=== PATIENT | female | born 1960 | race African-American/Black ===

== ENCOUNTER 2019-03-10 08:29 | Emergency (ER) | payer OTHER ==
[~2019-03-10] VITALS: Ht 165.1 cm; Wt 54.4 kg
[2019-03-10 09:11] LABS: HEMATOCRIT 39.8 % (37.0-47.0); HEMOGLOBIN 13.9 gm/dL (12.0-15.0); MCH 34.5 pg (26.0-34.0); MCV 98.8 fL (80.0-100.0); PLATELET COUNT 414 thou/uL (150-400); RBC 4.03 mil/uL (4.20-5.00); RDW 13.3 % (10.5-14.5); WBC 10.8 thou/uL (4.0-11.0)
[2019-03-10 09:22] LABS: ANION GAP 8 mmol/L (7-16); BUN 11 mg/dL (7-18); CALCIUM 10.1 mg/dL (8.5-10.1); CHLORIDE 94 mmol/L (98-107); CO2 33 mmol/L (21-32); CREATININE 0.8 mg/dL (0.6-1.0); GLUCOSE 107 mg/dL (74-106); SODIUM 135 mmol/L (136-145)
[2019-03-10 09:30] LABS: TROPONIN-I <0.06 ng/mL (<0.06)
[2019-03-10] MEDS ORDERED: ZOFRAN ODT4 MG PO (09:44)
[2019-03-10 09:56] VITALS: BP 122/68
[2019-03-10 11:10] LABS: ABSOLUTE NEUTROPHILS 6.4 thou/uL (1.4-8.2); ATYPICAL LYMPHS 1 %; METAMYELOCYTES 3 %; NUCLEATED RBCS 1 /100WBC; PLATELET ESTIMATE INCREASED
[2019-03-10 11:11] LABS: POLYCHROMASIA 1+; TARGET CELLS FEW
--- NOTE | 2019-03-11 22:37 | EKG ---
[place] [address] [facility] [place] [address] ELECTROCARDIOGRAM REPORT Name: CALVIN JAY Room #: DEP JIMMY Liu#: [id number] ������������������ Admission: 03/10/19 ������������������ Attend Phys: Discharge: 03/10/19 ������������������ Date of : 60 Report #: [id number] ����������������������������������������������������������������� [id number] THIS REPORT FOR: //name// [facility] ED Test Date: 2019-03-10 Test Time: 08:52:48 Pat Name: CALVIN JAY Department: Room: Gender: F Respiratory Care Technician: JEET : 1960 Requested By: Kannan Cervantes Order Number: [id number] MD: Anibal Rodriguez Measurements Intervals [place] Rate: 90 P: 50 CT: 151 QRS: 37 QRSD: 86 T: 51 QT: 375 QTc: 459 Interpretive Statements Sinus rhythm Left atrial enlargement Probable left ventricular hypertrophy Baseline wander in lead(s) V4 No previous ECG available for comparison Electronically Signed On 03-11-2019 22:37:48 CDT by Anibal Rodriguez [email or web address] ��������������������������������������������� <ELECTRONICALLY SIGNED> ���������������������������������������� By: Anibal Rodriguez MD ��������������������������������������������� 03/11/19 [id number] Anibal Rodriguez MD /VANDANA
== END 2019-03-10 09:57 | disposition home or self-care (01) ==
LOC: ER 08:29
PROVIDERS: Emergency Medicine
DX: J11.1 Influenza due to unidentified influenza virus with other respiratory manifestations (principal); F17.210 Nicotine dependence, cigarettes, uncomplicated